=== PATIENT | female | born 1955 | race Caucasian/White ===

== ENCOUNTER 2023-10-10 11:27 | Outpatient (CLI) | payer MEDICARE, OTHER | END 2023-10-10 22:27 | disposition critical access hospital (66) | LOC: EMS 11:27 | DX: R55 Syncope and collapse (principal) | CPT/HCPCS: A0425; A0427 ==

== ENCOUNTER 2023-10-10 12:00 | Emergency (ER) | payer MEDICARE, OTHER ==
--- NOTE | 2023-10-10 12:19 | ED Physician Documentation ---
History of Present Illness - Stated complaint Stated Complaint: SYNCOPAL/GLF - Chief complaint Chief Complaint: General - History obtained from History obtained from: Patient, Friend, EMS - History of Present Illness Timing: Today Pain level max: 2 Pain level now: 2 - Additonal information Additional information: Patient is a 68-year-old female who presents to the emergency department after syncopal event today. She was over at a friend's house when she was getting herself a diet Coke, she states that she missed a step and went down onto her knees. When she went to stand up she had a syncopal event, her friend caught her prior to her falling to the ground and laid her on the ground. Unconscious for about 30 seconds to a minute. They then set her up again, she sat on the couch and had a second syncopal event lasted about 15 to 20 seconds. She then had a third syncopal event for about 15 seconds when moving to the EMS stretcher. Was not on the monitor during this time. She states that she has a long history of passing out. No cause was ever been found. She states she has been passing out since she was 6 years old. She is on Eliquis for atrial fibrillation. History of a stroke. She was not in A-fib with EMS. Received 600 mL of normal saline with EMS and states that she is currently feeling better. She is complaining of right ankle pain. No head injury. No head trauma. No abrasions. No headache. No vomiting. No seizure activity. Patient reportedly just had a Zio patch on that did not show any arrhythmias. Review of Systems Constitutional: denies: Fever, Chills Throat: denies: Sore throat GI: denies: Vomiting, Diarrhea Skin: denies: Rash Musculoskeletal: denies: Neck pain, Back pain Neurologic: denies: Headache PD PAST MEDICAL HISTORY - Past Medical History Past Medical History: Yes Cardiovascular: Atrial fibrillation Neuro: CVA Endocrine/Autoimmune: HyPOthyroidism - Present Medications Home Medications: Ambulatory Orders Medication Instructions Recorded Confirmed Apixaban [Eliquis] 5 mg PO BID 10/10/23 10/10/23 Citalopram Hydrobromide [Celexa] 20 mg PO DAILY 10/10/23 10/10/23 Levothyroxine [Synthroid] 75 mcg PO QDAC 10/10/23 10/10/23 Omeprazole 20 mg PO DAILY 10/10/23 10/10/23 Rosuvastatin Calcium 40 mg PO DAILY 10/10/23 10/10/23 bisoproloL fumarate [Bisoprolol 5 mg PO DAILY 10/10/23 10/10/23 Fumarate] - Allergies Allergies/Adverse Reactions: Allergies Allergy/AdvReac Type Severity Reaction Status Date / Time Sulfa (Sulfonamide Allergy Intermediate Itching Verified 10/10/23 12:29 Antibiotics) - Living Situation Living Situation: reports: With family Living Arrangement: reports: At home - Social History Does the pt smoke?: No Does the pt have substance abuse?: No - Family History Family history: reports: Non contributory PD ED PE NORMAL - Vitals Vital signs reviewed: Yes - General General: Alert and oriented X 3, No acute distress - HEENT HEENT: Atraumatic (No scalp hematomas. No palpable skull fractures), PERRL, Ears normal, Moist mucous membranes, Pharynx benign - Neck Neck: Supple, no meningeal sign, No bony TTP - Cardiac Cardiac: RRR, Strong equal pulses - Respiratory Respiratory: No respiratory distress, Clear bilaterally - Abdomen Abdomen: Soft, Non tender, Non distended - Back Back: No spinal TTP - Derm Derm: Warm and dry - Extremities Extremities: Other - Neuro Neuro: Alert and oriented X 3, loom winder tender 2-12 intact, No motor deficit, No sensory deficit, Normal speech Eye Opening: Spontaneous Motor: Obeys Commands Verbal: Oriented GCS Score: 15 - Psych Psych: Normal mood, Normal affect - Free text exam Free text exam: Mild swelling to the lateral malleolus of the right ankle. Neurovascular intact. Mild tenderness. Does have a small bruise over the anterior aspect of the right knee as well but no tenderness over the patella. No bony tenderness otherwise over the right knee. No joint effusion. ACL, MCL, PCL, LCL are intact Otherwise normal examination of all 4 extremities Results - Vitals Vitals: Vital Signs - 24 hr 10/10/23 10/10/23 12:20 14:23 Temperature 36.3 C L 36.5 C Heart Rate 60 66 Respiratory 18 18 Rate Blood Pressure 121/74 131/68 H O2 Saturation 100 98 Oxygen O2 Source Room air - EKG (time done) 1226 EKG releavant findings:: EKG personally interpreted by author of this note. Relevant findings are: Rate: Rate (enter#) (52) Rhythm: NSR [place]: Normal Intervals: Normal MI, 2nd degree AVB type 1 Ischemia: T wave inversion (V1-2) Compare to prior EKG: Old EKG unavailable - Labs Labs: Laboratory Tests 10/10/23 10/10/23 10/10/23 12:17 12:17 12:17 WBC 4.4 L RBC 3.94 L Hgb 11.9 L Hct 36.4 L MCV 92.4 MCH 30.2 MCHC 32.7 RDW 12.1 Plt Count 208 MPV 9.9 Neut # (Auto) 2.1 Lymph # (Auto) 1.3 L [place] # (Auto) 0.7 Eos # (Auto) 0.2 Baso # (Auto) 0.0 Absolute Nucleated RBC 0.00 Nucleated RBC % 0.0 Sodium 133 L Potassium 4.6 H Chloride 101 Carbon Dioxide 28 Anion Gap 4.0 L BUN 16 Creatinine 0.7 Estimated GFR (MDRD) 83 L Glucose 106 H Calcium 9.4 Total Bilirubin 0.6 AST 21 ALT 19 Alkaline Phosphatase 52 Troponin I High Sens 2.6 Total Protein 6.2 L Albumin 4.1 Globulin 2.1 Albumin/Globulin Ratio 2.0 Lipase 39 - Rads (name of study) cxr Relevant Findings:: Final report received, See rad report Right ankle x-ray Relevant Findings:: Final report received, See rad report PD Medical Decision Making - ED course Complexity details: reviewed results, re-evaluated patient, considered differential (No ST elevation [place], no aortic dissection, no PE, no tension pneumothorax, no aortic aneurysm), d/w patient, d/w family ED course: Patient with syncope today. She has apparently had syncope for several years, since she was 6 years old. No cause has ever been found. Recently had monitoring with a Zio patch that reportedly had no abnormal findings. No arrhythmias on telemetry here. Feels much better after IV fluids. Ambulating without difficulty except for pain in the right ankle. Right ankle x-ray does not show any fractures. Placed in a gel splint for comfort. Will treat as ankle sprain, likely from the fall. Not having any knee pain now. No tenderness over the patellas bilaterally. No other acute injuries. No acute findings on laboratory studies. No hypoxia or tachycardia. Patient does not want to stay in the hospital. Will have her follow-up with her doctor for further care. Patient counseled regarding signs and symptoms for which I believe and urgent re-evaluation would be necessary. Patient with good understanding of and agreement to plan and is comfortable going home at this time This document was made in part using voice recognition software. While efforts are made to proofread this document, sound alike and grammatical errors may occur. Departure - Departure Disposition: 01 Home, Self Care Clinical Impression: Syncope Qualifiers: Syncope type: unspecified Qualified Code(s): R55 - Syncope and collapse Right ankle sprain Qualifiers: Encounter type: initial encounter Involved ligament of ankle: unspecified ligament Qualified Code(s): S93.401A - Sprain of unspecified ligament of right ankle, initial encounter Condition: Good Instructions: ED Fainting Unkn Cause, ED Sprain Ankle Follow-Up: your,doctor in 1 week [Other] Comments: Make sure you are drinking plenty of fluids at home. Please follow-up with your doctor this week for further care. Please return if you worsen. You can use tylenol as needed at home for pain. You may bear weight as tolerated. Forms: PCP List Discharge Date/Time: 10/10/23 14:24
[2023-10-10 12:23] LABS: BASOPHILS % (AUTO) 0.9 %; EOSINOPHILS # (AUTO) 0.2 10^3/uL (0.0-0.7); HCT - HEMATOCRIT 36.4 % (37.0-47.0); HGB - HEMOGLOBIN 11.9 g/dL (12.0-16.0); LYMPHOCYTES # (AUTO) 1.3 10^3/uL (1.5-3.5); LYMPHOCYTES % (AUTO) 30.5 %; MEAN CORPUSCULAR HEMOGLOBIN 30.2 pg (27.0-31.0); MEAN CORPUSCULAR HGB CONC 32.7 g/dL (32.0-36.0); MEAN CORPUSCULAR VOLUME 92.4 fL (81.0-99.0); MEAN PLATELET VOLUME 9.9 fL (7.9-10.8); MONOCYTES # (AUTO) 0.7 10^3/uL (0.0-1.0); NEUTROPHILS # (AUTO) 2.1 10^3/uL (1.5-6.6); NEUTROPHILS % (AUTO) 48.6 %; PLT - PLATELET COUNT 208 10^3/uL (130-450); RED BLOOD COUNT 3.94 10^6/uL (4.20-5.40); RED CELL DISTRIBUTION WIDTH 12.1 % (12.0-15.0); WHITE BLOOD COUNT 4.4 x10^3/uL (4.8-10.8)
[2023-10-10] MEDS: SODIUM CHLORIDE 0.9% 1,000 ML IV STA (12:29)
[2023-10-10 12:41] LABS: ALBUMIN 4.1 g/dL (3.2-5.5); BILIRUBIN,TOTAL 0.6 mg/dL (0.2-1.0); CALCIUM 9.4 mg/dL (8.5-10.3); CREATININE 0.7 mg/dL (0.6-1.3); POTASSIUM 4.6 mmol/L (3.5-4.5); TOTAL PROTEIN 6.2 g/dL (6.4-8.9)
--- NOTE | 2023-10-10 13:47 | XRAY Report ---
PROCEDURE: Ankle 3+V RT INDICATIONS: R ankle pain s/p fall TECHNIQUE: 3 views of the ankle were acquired. COMPARISON: None FINDINGS: Bones: No fractures or dislocations. Ankle mortise is normally aligned. No suspicious bony lesions . Small fibular accessory ossicle Soft tissues: Unremarkable without significant soft tissue swelling. No radiopaque foreign body. IMPRESSION: Unremarkable ankle radiographs Reviewed by: Jesu White MD on 10/10/2023 12:46 PM [facility] Approved by: Jesu White MD on 10/10/2023 12:46 PM [facility] Station ID: [id number]
--- NOTE | 2023-10-10 13:47 | XRAY Report ---
PROCEDURE: Chest 1V INDICATIONS: syncope TECHNIQUE: One view of the chest was acquired. COMPARISON: None FINDINGS: Surgical changes and devices: None. Lungs and pleura: Trace atelectasis and/or infiltrate. Left lung and both pleural spaces clear Mediastinum: Mediastinal contours appear normal. Heart size is normal. Bones and chest wall: No suspicious bony lesions. Overlying soft tissues appear unremarkable. IMPRESSION: Trace right basilar atelectasis and or infiltrate Reviewed by: Jesu White MD on 10/10/2023 12:45 PM [facility] Approved by: Jesu White MD on 10/10/2023 12:45 PM [facility]DT Station ID: [id number]
[2023-10-10 14:33] VITALS: BP 131/68; O2SAT 98
== END 2023-10-10 14:24 | disposition home or self-care (01) ==
LOC: ED 12:00
DX: R55 Syncope and collapse (principal); S93.401A Sprain of unspecified ligament of right ankle, initial encounter; W10.9XXA Fall (on) (from) unspecified stairs and steps, initial encounter; I48.91 Unspecified atrial fibrillation; E03.9 Hypothyroidism, unspecified; Z86.73 Personal history of transient ischemic attack (TIA), and cerebral infarction without residual deficits; Z79.01 Long term (current) use of anticoagulants; Z79.899 Other long term (current) drug therapy
CPT/HCPCS: 36415; 80053; 83690; 84484; 85025; 93005; 99283; 99284